=== PATIENT | male | born 1975 | race Caucasian/White ===

== ENCOUNTER → 2017-12-15 | Outpatient (CLI) | payer BC | END | disposition home or self-care (01) | LOC: KCIC 14:59 | DX: M47.897 Other spondylosis, lumbosacral region (principal); M48.07 Spinal stenosis, lumbosacral region; M12.88 Other specific arthropathies, not elsewhere classified, other specified site | CPT/HCPCS: 72110 ==

== ENCOUNTER 2019-01-09 07:07 | Emergency (ER) | payer BC ==
[~2019-01-09] VITALS: Ht 188 cm; Wt 90.7 kg
[~2019-01-09 07:07] MED LIST: CETI10TA22 PO; DIAZ5TAB PO; DOCU-109 PO; IBUP100T7 PO; LOSA1TAB25 PO; LOSA25TA54 PO; ONDA4TAB10 SL; OXYC1TAB15 PO
[2019-01-09 07:20] VITALS: BP 134/75
[2019-01-09] MEDS ORDERED: CYCLOBENZAPRINE 10 MG TABLET. PO ONE (08:00)
[2019-01-09] MEDS ORDERED: KETOROLAC 60 MG/2 ML VIAL. IM ONE (08:00)
[2019-01-09] MEDS ORDERED: HYDROcodone/APAP 5/325MG 1 TAB TABLET PO ONE (08:45)
[2019-01-09] MEDS ORDERED: predniSONE 10 MG TABLET PO ONE (08:45)
[2019-01-09] MEDS ORDERED: METH4TAB2 PO (08:59)
--- NOTE | 2019-01-09 11:28 | PHYS DOC ---
Past Medical History Past Medical History: Other Additional Past Medical Histor: CHRONIC BACK PAIN Past Surgical History: Other Additional Past Surgical Histo: right shoulder Alcohol Use: None Drug Use: None Adult General Chief Complaint Chief Complaint: BACK PAIN - NO INJURY HPI HPI Patient is a 44 year old yo male with back pain. onset on and off for the last few months . If not longer however the last couple of days ago worse last night he was working on a machine and he felt a spasm in his left lower back radiates to left buttock no bowel or bladder incontinence no numbness in the lower extremities he has had Toradol injections at urgent care that has helped before and he did take a Medrol Dosepak about a month ago and that helped a lot as well. Pain is sharp nonradiating except to the buttock Review of Systems Review of Systems Constitutional: Denies fever or chills [] Eyes: Denies change in visual acuity, redness, or eye pain [] HENT: Denies nasal congestion or sore throat [] Respiratory: Denies cough or shortness of breath [] Cardiovascular: No additional information not addressed in HPI [] Neurologic: Denies headache, focal weakness or sensory changes [] Endocrine: Denies polyuria or polydipsia [] All other systems were reviewed and found to be within normal limits, except as documented in this note. Current Medications Current Medications Current Medications Medications (Trade) Dose Ordered Sig/Nick Start Time Stop Time Status Last Admin Dose Admin Acetaminophen/ Hydrocodone Bitart (Lortab 5/325) 2 tab 1X ONCE 01/09/19 08:45 01/09/19 08:46 DC 01/09/19 08:49 2 TAB Cyclobenzaprine HCl (Flexeril) 10 mg 1X ONCE 01/09/19 08:00 01/09/19 08:01 DC 01/09/19 07:59 10 MG Ketorolac Tromethamine (Toradol Im) 30 mg 1X ONCE 01/09/19 08:00 01/09/19 08:01 DC 01/09/19 07:59 30 MG Prednisone (Prednisone) 50 mg 1X ONCE 01/09/19 08:45 01/09/19 08:46 DC 01/09/19 08:47 50 MG Allergies Allergies Allergies Coded Allergies Type Severity Reaction Last Updated Verified shellfish derived Allergy Severe 08/01/16 Yes Physical Exam Physical Exam Constitutional: Well developed, well nourished, moderate distress, non-toxic appearance. [] HENT: Normocephalic, atraumatic, bilateral external ears normal, oropharynx moist, no oral exudates, nose normal. [] Eyes: PERRLA, EOMI, conjunctiva normal, no discharge. [] Neck: Normal range of motion, no tenderness, supple, no stridor. [] Pulmonary: Normal respiratory effort no increased work of breathing no obvious chest wall trauma Abdomen: Bowel sounds normal, soft, no tenderness, no masses, no pulsatile masses. [] Skin: Warm, dry, no erythema, no rash. [] Back: there is left paraspinous and left buttock ttp. palpable spasm. after tx pt is able to walk with an antalgic gait. Extremities: No tenderness, no cyanosis, no clubbing, ROM intact, no edema. [] Neurologic: Alert and oriented X 3, normal motor function, normal sensory function, no focal deficits noted. [] Current Patient Data Vital Signs Vital Signs Date Time Temp Pulse Resp B/P (MAP) Pulse Ox O2 Delivery O2 Flow Rate FiO2 01/09/19 07:20 97.9 91 18 134/75 (94) 99 Room Air 97.9 EKG EKG [] Radiology/Procedures Radiology/Procedures [] Course & Med Decision Making Course & Med Decision Making Pertinent Labs and Imaging studies reviewed. (See chart for details) 44 yo m with back pain. longstanding hx of same pt treated with the above and was able to ambulate and felt somewhat better. rx medrol dosepak f/u pmd for pain mgmt referral, jessica need mri and jorge alberto given the more acute pain occuring recently. no signs of cauda equina clinically Dragon Disclaimer Dragon Disclaimer This electronic medical record was generated, in whole or in part, using a voice recognition dictation system. Departure Departure Impression: Primary Impression: Back pain Disposition: 01 HOME, SELF-CARE Condition: STABLE Patient Instructions: Back Pain, Adult, [id number] Scripts Methylprednisolone (MEDROL) 4 Mg Tab.ds.pk 1 PKG PO UD, #1 PKG Prov: MARGRET FRANCO MD 01/09/19 MARGRET FRANCO MD Jan 09, 2019 11:28
== END 2019-01-09 09:05 | disposition home or self-care (01) ==
LOC: ER 07:07
DX: M54.5 Low back pain (principal); G89.29 Other chronic pain; Z91.013 Allergy to seafood
CPT/HCPCS: 96372; 99284; J1885; J7512

== ENCOUNTER → 2019-06-04 | Outpatient (CLI) | payer BC ==
[~2019-06-04] MED LIST changes: +AMLO10TA8 PO; +METH4TAB2 PO
--- NOTE | 2019-06-04 09:09 | KCIC ---
LUMBAR SPINE WO CONTRAST History: Chronic back pain. Right sciatica. Arthritis. Technique: Multiplanar, multi sequential MR imaging was performed of the lumbar spine. Comparison: None Findings: Normal vertebral body height and alignment. No fracture. Heterogeneous marrow signal. Degenerative endplate edema at L5-S1. Conus terminates at the normal location. No evidence of nerve root clumping. L1-L2: Minimal posterior disc bulge. No canal or neuroforaminal narrowing. L2-L3: Minimal posterior disc bulge. Mild facet arthropathy. No canal or neuroforaminal narrowing. L3-L4: Small posterior disc bulge. Mild facet arthropathy. No canal or neuroforaminal narrowing. L4-L5: Minimal posterior disc bulge. Moderate facet arthropathy. No canal or neuroforaminal narrowing. L5-S1: Severe disc height loss. Broad-based posterior disc bulge with central annular fissure. Moderate facet arthropathy. Mild bilateral subarticular recess narrowing with slight abutment of the bilateral descending S1 nerve roots. No neuroforaminal narrowing. Impression: 1. Multilevel lumbar spondylosis most prominent L5-S1 with mild subarticular recess narrowing. 2. Moderate lower lumbar facet arthropathy. Electronically signed by: Shamar Liu DO (06/04/2019 9:06 AM) [facility]
== END | disposition home or self-care (01) ==
LOC: KCIC MRI 07:40
PROVIDERS: ATTEND Physician Assistant Medical
DX: M47.897 Other spondylosis, lumbosacral region (principal); M48.07 Spinal stenosis, lumbosacral region; M12.88 Other specific arthropathies, not elsewhere classified, other specified site
CPT/HCPCS: 72148

== ENCOUNTER → 2019-06-23 | Outpatient (CLI) | payer BC ==
[~2019-06-23] MED LIST changes: +IOHEXOL 180 MG/ML 10 ML VIAL. ONE; +methylPREDNISolone ACETATE 40 MG/ML VIAL. ONE; +methylPREDNISolone ACETATE 80 MG/ML VIAL. ONE
--- NOTE | 2019-06-23 22:37 | PAIN ---
DATE OF SERVICE: 06/23/2019 INITIAL CONSULTATION FOR PAIN CLINIC CHIEF COMPLAINT: Low back and right lower extremity pain. HISTORY OF PRESENT ILLNESS: This is a 44-year-old male who presents with history of pain, low back, right lower extremity since about 2002, worse over the past 6 months to a year, worse with activity, standing, walking, changing positions, better with sitting or lying down, but still awakens him from sleep at least 2-3 times at night. The patient reports it does not affect his bowel or bladder control, but does affect his ability to walk. Significantly problematic when he is at work, when he is standing on a ladder or climbing or changing positions, stooping or bending. The patient reports the pain is constant now, shooting in the low back and the right leg, radiating in the right lower extremity and posterior gluteus as well as the thigh, changes during the day. Again, worse with activity. The patient reports no new motor or sensory deficits, but significant fatigability of the right lower extremity, but none on the left side. The patient did have an MRI scan of the lumbar spine showing multilevel lumbar spondylosis and severe disk height loss at L5-S1 with broad-based posterior disk bulge with central annular fissure and mild bilateral subarticular recess narrowing with slight abutment of bilateral descending S1 nerve roots The patient rates the disability rating from 0-10, 10 being the worst, as a 2 with family home responsibilities and social activity and self-care, 3 with recreation, 6 with occupational activities, 5 with sexual behavior. PAST MEDICAL HISTORY: Significant for hypertension, arthritis. PREVIOUS SURGERY: Includes left rotator cuff repair in 2016. CURRENT MEDICATIONS: Include amlodipine, losartan and Zyrtec. ALLERGIES: THE PATIENT IS ALLERGIC TO SHELL FISH, but no medical allergies. FAMILY HISTORY: Significant for no major medical problems or conditions that he is aware of. SOCIAL HISTORY: The patient drinks about 5 alcoholic drinks a day, does not smoke, does not use any illegal, illicit or recreational drugs. 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 REVIEW OF SYSTEMS: The patient's review of systems is positive for those items mentioned in history of present illness. All systems reviewed and otherwise negative. It is complete, full and well documented on the patient's chart. PHYSICAL EXAMINATION: VITAL SIGNS: The patient's blood pressure is 129/82, pulse 81, respirations are 18, temperature is 98.5 degrees Fahrenheit, height is 6 feet 2 inches, weighs 193 pounds. GENERAL: The patient is awake, alert, oriented, appropriate, very pleasant demeanor. The patient is accompanied by his spouse. HEENT: Shows normocephalic, atraumatic. Extraocular movements are intact and symmetrical. Oral cavity: Mucous membranes moist and pink. Dentition is intact. NECK: Shows anterior throat supple without palpable lymphadenopathy noted. Swallow reflex symmetrical. CHEST: Shows normal on inspection. Breath sounds clear to auscultation bilaterally. HEART: Shows S1, S2 clear. No murmurs auscultated. ABDOMEN: Soft, nontender, nondistended. No palpable organomegaly is noted. No rebound or guarding demonstrated. BACK: Shows spine grossly in the midline. Normal appearing thoracic kyphosis, some minor flattening of the lumbar lordotic curvature. Lumbar paraspinous muscle shows symmetrical on inspection, with palpation shows some very mild tenderness in the low lumbar distribution bilaterally but only diffusely without radiation. The patient has good rotational motion of lumbar spine, both laterally as well as extension and flexion without significant difficulty. No tenderness over the spinous processes, sacrum or sacroiliac regions. The patient has good rotational motion without pain reported both laterally as well as extension and flexion. EXTREMITIES: The patient's lower extremities show deep tendon reflexes at 2+ patellar and 1+ tendo-calcaneus tendons. Motor exam is 5/5 with dorsiflexion, extension, quadriceps and hamstring flexion. Peripheral pulses are 1+ posterior tibia. No peripheral edema is noted. Lower extremities are warm and dry to touch, equal in color and appearance. The patient does have positive straight leg raise on the right about 45 degrees, decreased with knee flexion, left side is negative. SKIN: Shows warm and dry, good turgor. No edema. No sores, rashes or bruising throughout. The patient is able to stand, stand on his toes without significant difficulty or loss of balance, is walking with a normal-appearing gait, not using any assistive devices to ambulate. IMPRESSION: 1. This is a 44-year-old male with approximately 6 months to a year history of increasing pain, low back and right lower extremity in a radicular fashion. 2. MRI scan of lumbar spine as noted. 3. Arthritis. 4. Hypertension. PLAN: Options were discussed with the patient and the patient's spouse who accompanies him to his visit today including conservative medical management, physical therapies, interventional techniques and he has done physical therapy in the past. He is doing some stretching and strengthening exercises as well as some chiropractic treatment currently. We discussed a lumbar epidural steroid injection using description as well as anatomical models to describe the procedure. Risks were then discussed including, but not limited to bleeding, infection, possibility of epidural hematoma, subsequent neurological compromise, dural puncture, headaches, spinal cord and/or nerve damage, side effects of steroid medication and poor results regarding pain control. The patient understands and wished to proceed. The patient will return to clinic in approximately 2 weeks for followup. He was counseled as to return appointment, activity level and side effects to be aware of. DIAGNOSES: Lumbar radiculopathy with lumbar degenerative disk disease. PROCEDURE: Lumbar epidural steroid injection, translaminar approach L5-S1 level using C-arm fluoroscopic guidance under sterile prep and drape using local anesthetic. MEDICATION INJECTED: The patient received a total of 120 mg of Depo-Medrol plus 10 mL of sterile normal saline and 2 mL of contrast. CONDITION AT DISCHARGE: Stable. The patient tolerated the procedure well, had no complications. CASEY CASTELLANOS MD DR: JOYCE/gurvinder JOB#: [id number] / [id number] IE Newton MD
== END ==
LOC: PNCL 08:14
PROVIDERS: ATTEND Anesthesiology
DX: M51.16 Intervertebral disc disorders with radiculopathy, lumbar region (principal); I10 Essential (primary) hypertension; Z91.013 Allergy to seafood; Z98.890 Other specified postprocedural states; Z72.89 Other problems related to lifestyle
CPT/HCPCS: 62323; J1030; J1040; Q9965

== ENCOUNTER → 2019-07-07 | Outpatient (CLI) | payer BC ==
--- NOTE | 2019-07-07 08:35 | PAIN ---
DATE OF SERVICE: 07/07/2019 PROGRESS NOTE FOR PAIN CLINIC DIAGNOSIS: Lumbar radiculopathy with lumbar degenerative disk disease. HISTORY OF PRESENT ILLNESS: The patient is a 44-year-old male who returns for followup status post lumbar epidural steroid injection x 1. The patient reports about 50% improvement in the low back and right lower extremity pain. The patient reports still significant pain with walking, standing and has been increasing his activity with greater ease and comfort, doing walking distances, able to do work activities, household activities with much greater ease and comfort, sleeping better at night. The patient reports the pain is a 4 on a scale of 10 at all times over the past week average, worst and least and is a 4 today. The patient reports it is dull, tight, shooting. No new motor or sensory deficits. No new bowel or bladder incontinence or other complaints. PHYSICAL EXAMINATION: VITAL SIGNS: The patient's blood pressure is 128/74, pulse 80, respirations 18, temperature 98.1 degrees Fahrenheit, height 6 feet 2 inches, weight is 194 pounds. GENERAL: The patient is awake, alert, oriented, appropriate, very pleasant demeanor. HEENT: Shows normocephalic, atraumatic. Extraocular movements are intact and symmetrical. Oral cavity: Mucous membranes moist and pink. Dentition is intact. NECK: Shows anterior throat supple without palpable lymphadenopathy noted. Swallow reflex symmetrical. CHEST: Shows normal on inspection. Breath sounds are clear to auscultation bilaterally. HEART: Shows S1, S2 clear. No murmurs auscultated. ABDOMEN: Soft, nontender, nondistended. No palpable organomegaly is noted. No rebound or guarding demonstrated. BACK: Shows spine grossly in the midline. Normal appearing thoracic kyphosis and lumbar lordotic curvature. Lumbar paraspinous muscle shows symmetrical on inspection, with palpation shows some moderate tenderness diffusely bilaterally, but only diffusely without radiation. The patient has good rotational motion of lumbar spine without difficulty. EXTREMITIES: Lower extremities show deep tendon reflexes at 2+ in the patellar, 1+ tendo-calcaneus tendons. Motor exam is strong with 5/5 dorsiflexion, extension, quadriceps and hamstring flexion and symmetrical. Peripheral pulses are 1+ posterior tibial. No peripheral edema is noted. Options were discussed with the patient. The patient's old chart was reviewed as his current medication regimen updated. Current review of systems updated today as well. We will proceed with a second in a series of lumbar epidural steroid injection today with fluoroscopic guidance. Risks were again discussed including, but not limited to bleeding, infection, possibility of epidural hematoma, subsequent neurologic compromise, dural puncture, headaches, spinal cord and/or nerve damage, side effects of steroid medication and poor results regarding pain control. The patient understands and wished to proceed. The patient will return to clinic in approximately 2 weeks for followup. He was counseled on return appointment, activity level and side effects to be aware of. DIAGNOSIS: Lumbar radiculopathy with lumbar degenerative disk disease. PROCEDURE: Lumbar epidural steroid injection, translaminar approach at the L5-S1 level using C-arm fluoroscopic guidance under sterile prep and drape using local anesthetic. MEDICATION INJECTED: The patient received a total of 120 mg Depo-Medrol plus 10 mL of preservative-free normal saline and 2 mL of contrast. CONDITION AT DISCHARGE: Stable. The patient tolerated the procedure well, had no complications. CASEY CASTELLANOS MD DR: JOYCE/gurvinder JOB#: [id number] / [id number]
== END ==
LOC: PNCL 07:37
PROVIDERS: ATTEND Anesthesiology
DX: M51.16 Intervertebral disc disorders with radiculopathy, lumbar region (principal); M54.5 Low back pain
CPT/HCPCS: 62323; J1030; J1040; Q9965

== ENCOUNTER → 2019-09-22 | Outpatient (CLI) | payer BC ==
--- NOTE | 2019-09-22 12:37 | PAIN ---
DATE OF SERVICE: 09/22/2019 PROGRESS NOTE FOR PAIN CLINIC DIAGNOSES: Lumbar radiculopathy with lumbar degenerative disk disease. HISTORY OF PRESENT ILLNESS: The patient is a 44-year-old male who returns for followup status post lumbar epidural steroid injection x 2. The patient reports about 80% improvement after the last injection that lasted longer than the first one, he has been increasing his distance walking, doing work activities with greater ease and comfort, home household activities, traveling with greater ease as well. The patient reports still in the low back and right lower extremity radiating to posterior gluteus, posterior thigh, posterior calf, but much improved. The patient reports he has been sleeping better at night, awakens him occasionally, but not every night. The patient reports it is an 8 on a scale of 10 at its worst over the past week, 5 on average and 3 at its least and is a 5 today. The patient reports it is sharp, tight, shooting in the low back and the right hip and leg, but no motor or sensory deficits. No bowel or bladder incontinence or other complaints. PHYSICAL EXAMINATION: VITAL SIGNS: The patient's blood pressure 129/85, pulse 84, respirations 16, temperature 98.4 degrees Fahrenheit, height is 6 feet 2 inches and weight is 195 pounds. GENERAL: The patient is awake, alert, oriented, appropriate, very pleasant demeanor. HEENT: Shows normocephalic, atraumatic. Extraocular movements are intact and symmetrical. Oral cavity: Mucous membranes moist and pink. Dentition is intact. NECK: Shows anterior throat supple without palpable lymphadenopathy noted. Swallow reflex symmetrical. CHEST: Shows normal on inspection. Breath sounds are clear bilaterally. HEART: Shows S1, S2 clear. ABDOMEN: Soft, nontender, nondistended. BACK: Shows spine grossly in the midline. Normal appearing thoracic kyphosis and lumbar lordotic curvature. Lumbar paraspinous muscle shows symmetrical on inspection, on palpation shows some moderate tenderness diffusely bilaterally going diffusely without significant radiation. EXTREMITIES: The patient's lower extremities show deep tendon reflexes 2+ in the patellar, 1+ tendo-calcaneus tendons. Motor exam is strong with 5/5 dorsiflexion, extension, quadriceps and hamstring flexion. Peripheral pulses are 1+ posterior tibia. No peripheral edema is noted bilaterally. Options were discussed with the patient. The patient's old chart was reviewed as his current medication regimen updated. Current review of systems updated today as well. We will proceed with a third in the series of lumbar epidural steroid injection today with fluoroscopic guidance. Risks were again discussed including, but not limited to bleeding, infection, possibility of epidural hematoma, subsequent neurological compromise, dural puncture, headaches, spinal cord and/or nerve damage, side effects of steroid medication and poor results regarding pain control. The patient understands and wished to proceed. The patient will return to clinic in approximately 2 weeks for followup. She was counseled on return appointment, activity level and side effects to be aware of. DIAGNOSES: Lumbar radiculopathy with lumbar degenerative disk disease. PROCEDURE: Lumbar epidural steroid injection, translaminar approach L5-S1 level using C-arm fluoroscopic guidance under sterile prep and drape using local anesthetic. MEDICATION INJECTED: A total of 120 mg Depo-Medrol plus 10 mL of preservative-free normal saline and 2 mL of contrast. CONDITION AT DISCHARGE: Stable. The patient tolerated the procedure well, had no complications. CASEY CASTELLANOS MD DR: JOYCE/gurvinder JOB#: [id number] / [id number]
== END | disposition home or self-care (01) ==
LOC: PNCL 09:28
PROVIDERS: ATTEND Anesthesiology
DX: M51.16 Intervertebral disc disorders with radiculopathy, lumbar region (principal); Z98.890 Other specified postprocedural states; Z91.013 Allergy to seafood
CPT/HCPCS: 62323; J1030; J1040; Q9965

== ENCOUNTER → 2019-12-21 | Outpatient (CLI) | payer BC ==
--- NOTE | 2019-12-20 15:48 | EKG ---
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
[2019-12-20 16:14] LABS: BASO % 1 % (0-3); EOS # 0.1 x10^3/uL (0.0-0.7); EOS % 1 % (0-3); HEMATOCRIT 44.1 % (39.0-53.0); HEMOGLOBIN 15.2 g/dL (13.0-17.5); LYMPH # 1.2 x10^3/uL (1.0-4.8); LYMPH % 23 % (24-48); MEAN CORPUSCULAR HEMOGLOBIN 31 pg (25-35); MEAN CORPUSCULAR HGB CONC 35 g/dL (31-37); MEAN CORPUSCULAR VOLUME 90 fL (79-100); MONO # 0.5 x10^3/uL (0.0-1.1); MONO % 10 % (0-9); NEUT # 3.5 x10^3/uL (1.8-7.7); NEUT % 66 % (31-73); PLATELET COUNT 144 x10^3/uL (140-400); RED BLOOD COUNT 4.91 x10^6/uL (4.30-5.70); RED CELL DISTRIBUTION WIDTH 13.5 % (11.5-14.5); WHITE BLOOD COUNT 5.4 x10^3/uL (4.0-11.0)
[2019-12-20 16:59] LABS: ALBUMIN 3.4 g/dL (3.4-5.0); ALBUMIN/GLOBULIN RATIO 0.8 (1.0-1.7); CREATININE 0.9 mg/dL (0.7-1.3); GFR 90.8; POTASSIUM 4.1 mmol/L (3.5-5.1); TOTAL PROTEIN 7.8 g/dL (6.4-8.2)
[~2019-12-21] MED LIST changes: +CEPH-264 PO; -CETI10TA22 PO; +CETI10TA24 PO; +HYDR-3164 PO; +IBUP-1007 PO; -IOHEXOL 180 MG/ML 10 ML VIAL. ONE; +METH-38 PO; +UNABLE MC; -methylPREDNISolone ACETATE 40 MG/ML VIAL. ONE; -methylPREDNISolone ACETATE 80 MG/ML VIAL. ONE
== END | disposition home or self-care (01) ==
LOC: SURGPAT 10:39
PROVIDERS: ATTEND Neurological Surgery
DX: Z01.818 Encounter for other preprocedural examination (principal); I10 Essential (primary) hypertension; M48.00 Spinal stenosis, site unspecified
CPT/HCPCS: 36415; 80053; 85025; 87641; 93005

== ENCOUNTER 2019-12-24 08:34 | Day surgery (SDC) | payer BC ==
--- NOTE | 2019-12-23 14:09 | HP ---
ADMIT DATE: 12/24/2019 PREOPERATIVE HISTORY AND PHYSICAL DATE OF SURGERY: 12/24/2019. HISTORY OF PRESENT ILLNESS: The patient is a pleasant 44-year-old who has difficulty with low back pain and pain which radiates into his right buttock, posterior thigh and occasionally into his posterior leg. The problem has been present for many years. It has been gradually worsening. Despite conservative measures, he had physical therapy about 2 years ago that did help him for a short-term. He had epidural steroid injections recently, which he said helped him for about 1 week at most. Sitting or rising from a seated position increases his pain. Heat helps. PAST MEDICAL HISTORY: Hypertension. PAST SURGICAL HISTORY: Right rotator cuff repair. FAMILY HISTORY: Noncontributory. SOCIAL HISTORY: He is a nonsmoker. 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 . Denies substance abuse. Denies tobacco use. Drinks soda. ALLERGIES: SHRIMP AND SHELLFISH. CURRENT MEDICATIONS: None. REVIEW OF SYSTEMS: A 12-point review of systems was obtained and is noncontributory except for that mentioned above. PHYSICAL EXAMINATION: NEUROSURGERY EXAMINATION: GENERAL APPEARANCE: Alert, pleasant, no acute distress. HEAD: Normocephalic and atraumatic. SKIN: Warm and dry. MUSCULOSKELETAL: Lumbar paraspinal muscle bulk is normal, restricted range of motion of lumbar spine. [id number] tenderness of lower lumbar spine with palpation, normal range of motion of the lower extremities bilaterally. EXTREMITIES: No clubbing, cyanosis or edema. NEUROLOGIC: Alert and oriented x 3, normal recent and remote memory. Strength 5/5 in bilateral lower extremities. Sensory was intact to light touch in bilateral lower extremities. Reflexes were present and symmetric in the lower extremities bilaterally. Positive straight leg raising on the right, negative straight leg raising on the left, normal gait. IMAGING REVIEWED: I reviewed a lumbar MRI scan. On that study, there are degenerative changes primarily at L5-S1. At that level, there is lateral recess narrowing with abutment of the S1 nerve root. ASSESSMENT/PLAN The pattern of his pain does suggest an S1 radiculopathy. He does have lateral recess narrowing at L5-S1. He has failed extensive amount of conservative therapy. At this point, my recommendation is that he considers a decompression L5-S1 on the right. I have explained that this may not help him, I am willing to operate and decompress the S1 nerve root to see if this would offer him some relief. I outlined the risks including the nerve root injury in detail. I outlined the expected postoperative course. He understands. He would like to go ahead. We will make the arrangements. MOSHE SCHAFER MD DR: RADHA/gurvinder JOB#: [id number] / [id number] MARIA ELENA
[~2019-12-24 08:34] MED LIST changes: +BACITRACIN 50,000 UNIT in IV NORMAL SALINE 1000ML BAG 1,000 ML IRR ONE; +BUPIVACAINE-EPI 0.5%-1:200000 MPF 30 ML VIAL. ONE; +GELATIN SPONGE SIZE 100. ONE; +HYDROmorphone 2 MG/ML VIAL IV PRN; +IV RINGERS,LACTATED 1000ML 1,000 ML IV SCH; +KETOROLAC 60 MG/2 ML VIAL. ONE; -METH-38 PO; +MORPHINE SULFATE 2 MG/ML VIAL. IV PRN; +ONDANSETRON PF 4 MG/2 ML VIAL. IV PRN; +PROCHLORPERAZINE 10 MG/2 ML VIAL. IV PRN; +THROMBIN TOPICAL 20,000 UNIT SPRAY.SYRN KIT TP ONE; +fentaNYL PF VIAL 100 MCG/2 ML VIAL IV PRN
[2019-12-24] MEDS ORDERED: REMIFENTANIL 2 MG VIAL. IV ONE (09:43)
[2019-12-24] MEDS ORDERED: DESFLURANE > 120 MINUTES IH ONE ×2 (09:43→12:42)
[2019-12-24] MEDS ORDERED: ROCURONIUM 50 MG/5 ML VIAL. ONE (09:44)
[2019-12-24] MEDS ORDERED: PROPOFOL 20 ML IV ONE (09:45)
[2019-12-24] MEDS ORDERED: LIDOCAINE 2% PF 5 ML VIAL. ONE (09:46)
[2019-12-24] MEDS ORDERED: DEXAMETHASONE SOD PHOS 20 MG/5 ML VIAL. ONE (09:46)
[2019-12-24] MEDS ORDERED: ONDANSETRON PF 4 MG/2 ML VIAL. ONE (09:46)
[2019-12-24] MEDS ORDERED: PROPOFOL 50 ML IV ONE ×2 (09:46→12:06)
[2019-12-24] MEDS ORDERED: FAMOTIDINE 20 MG/2 ML VIAL ONE (10:46)
[2019-12-24] MEDS ORDERED: 0.9 % SODIUM CHLORIDE 20 ML VIAL. IJ ONE (10:47)
[2019-12-24] MEDS ORDERED: fentaNYL PF VIAL 100 MCG/2 ML VIAL ONE ×2 (10:51→13:04)
[2019-12-24] MEDS ORDERED: MIDAZOLAM HCL/PF 2 MG/2 ML VIAL. ONE (10:51)
[2019-12-24] MEDS ORDERED: PHENYLEPHRINE in 0.9% NACL PF 1 MG/10 ML SYRINGE. IV ONE (11:12)
[2019-12-24] MEDS ORDERED: ePHEDrine PF IN SALINE 50 MG/10 ML SYRINGE. IV ONE (11:19)
[2019-12-24] MEDS ORDERED: GLYCOPYRROLATE 1 MG/5 ML VIAL. ONE (12:42)
[2019-12-24] MEDS ORDERED: NEOSTIGMINE METHYLSULFATE 5 MG/5 ML SYRINGE. ONE (12:43)
[2019-12-24] MEDS ORDERED: HYDR-3164 PO (13:01)
[2019-12-24] MEDS ORDERED: DOCU-109 PO (13:01)
[2019-12-24] MEDS ORDERED: METH-38 PO (13:01)
--- NOTE | 2019-12-24 13:03 | DISCH ---
DISCHARGE INSTRUCTIONS Condition on Discharge Condition on Discharge: Stable Activity After Discharge Activity Instructions for Disc: Activity as tolerated, Avoid exertion, Other ROM activity Bathing Instructions: Shower-keep dressing dry Lifting Instructions after Dis: No heavy lifting, No pulling or pushing, Do not lift >10 pounds Exercise Instruction after Dis: Exercise per therapy Driving Instructions after Dis: Do not drive today Weight Bearing Status after Di: Non weight bearing Diet after Discharge Diet after Discharge: Regular Additional Diet Restrictions: resume home diet Wound Incision Care Wound/Incision Care: Ice to area for comfort Other wound/incision instructi: may remove dressing in 48 hours if dry then may shower, no soaking Contacting the [facility]Ansley after DC Call your doctor for: Concerns you may have Follow-Up Follow up with: Dr. Schafer's nurse in 2 weeks for wound check [phone] Treatment/Equipment after DC Adaptive Equipment Issued: None MOSHE SCHAFER MD Dec 24, 2019 13:03
[2019-12-24] MEDS ORDERED: PROCHLORPERAZINE 10 MG/2 ML VIAL. ONE (13:04)
[2019-12-24] MEDS ORDERED: HYDROcodone/APAP 5/325MG 1 TAB TABLET ONE (13:52)
[2019-12-24] MEDS ORDERED: HYDROcodone/APAP 5/325MG 1 TAB TABLET PO ONE (14:00)
[2019-12-24 14:03] VITALS: BP 128/65
--- NOTE | 2019-12-29 17:07 | PATHOLOGY ---
[facility] Accession Number: [id number] . 01 Material submitted: . vertebral column - LUMBAR DECOMPRESSION . 01 Clinical history: . Lumbar stenosis with neurogenic claudication . 02 Diagnosis: Segments of fibrocartilaginous, fibroadipose, and skeletal muscle tissue and bone, lumbar decompression: - Degenerative changes of fibrocartilaginous tissue. . (JPM:ivelisse; 12/29/2019) QMS 12/29/2019 1329 Local . 02 Comment: There is no evidence of an acute inflammatory process or maligancy. . 02 Electronically signed: . Jaron Tello MD, Pathologist NPI- [id number] . 01 Gross description: . The specimen is received in formalin, labeled "Donnie Newton IV, lumbar decompression". Received are multiple segments of pale seals fibrous, gritty tissue admixed with fragments of bone measuring 3.8 x 3.2 x 0.6 cm in aggregate dimensions. The specimen is submitted representatively in cassette A1, following decalcification. (CAA; 12/28/2019) QAC/QAC 12/29/2019 1328 Local . 02 Pathologist provided ICD-10: M51.36 . 02 CPT . 547380, [id number] Specimen Comment: A courtesy copy of this report has been sent to [phone], [phone] Specimen Comment: [id number] Specimen Comment: Report sent to / DR MEEKS Performed at: 01 [facility] [address], [place] [id number] MD Jack Porras MD Phone: [phone] Performed at: 02 [facility] [address], [place] [id number] MD Jaron Tello MD Phone: [phone]
--- NOTE | 2019-12-31 16:07 | OP ---
DATE OF SURGERY: 12/24/2019 PREOPERATIVE DIAGNOSIS: Lateral recess stenosis L5-S1 with right lumbar radiculopathy. POSTOPERATIVE DIAGNOSIS: Lateral recess stenosis L5-S1 with right lumbar radiculopathy. OPERATION PERFORMED: Hemilaminotomy and microdecompression L5-S1 right. The operation was done with EMG monitoring, SSEP monitoring, fluoroscopy, microscopic dissection. SURGEON: Nicholas Schafer MD DESIGN STUDIO CONSULTANT: TRENT Walters assisted with the surgery. She assisted with the exposure, the microdecompression as well as the closure. OPERATIVE INDICATIONS: The patient is a pleasant 44-year-old who developed intractable back and right leg pain for a number of years, which has been slowly worsening. On imaging studies, he was found to have lateral recess stenosis with compression of the right nerve root at L5-S1 and I recommended microdecompressive surgery after he failed to improve with both physical therapy and epidural steroid injections. He understood the surgery, the risks, the technique and expected postoperative course and wished to go ahead. DESCRIPTION OF PROCEDURE: Following general endotracheal anesthesia, the patient was positioned prone on the Juan frame. His lumbar region prepped and draped in the standard fashion. DANELLE hose and AV impulse boots were applied for DVT prophylaxis. A microscope was draped. Fluoroscopy was draped and brought into field. Monitoring was established. Ancef 2 grams were given less than 1 hour prior to initiation of surgery. Using fluoroscopic guidance, a midline posterior incision was made over the L5-S1 interspace, dissected down through skin and subcutaneous tissue, reflected the paraspinal muscles, placed a Alger microdisk retractor. I brought in the microscope and the remainder of surgery was done with the microscope using microscopic technique. I burred down a generous hemilaminotomy. I then began to peel the ligamentum flavum away from superior to inferior. There was considerable scarring of the ligamentum as I approached the L5-S1 interspace on the right hand side. I delicately worked through this, trimming first medially and then peeling from medial to lateral and I was able to work and remove the ligament and free up the nerve root, which was densely scarred beneath the thickened bone and ligament. I did work farther inferiorly performing a partial foraminotomy and fully decompressed the region and assured myself that the root was quite free. The disc was firm and no discectomy was warranted. I irrigated with antibiotic solution. I felt that I had an excellent decompression. I removed the retractor, obtained hemostasis in the muscle and I closed the wound in layers with absorbable suture. The skin was closed with 4-0 subcuticular stitch. Again, I felt the surgery went very well. NICHOLAS SCHAFER MD DR: RADHA/gurvinder JOB#: [id number] / [id number] MARIA ELENA
== END 2019-12-24 15:17 | disposition home or self-care (01) ==
LOC: SURG 08:34
PROVIDERS: ATTEND Neurological Surgery
DX: M48.061 Spinal stenosis, lumbar region without neurogenic claudication (principal); M51.16 Intervertebral disc disorders with radiculopathy, lumbar region; I10 Essential (primary) hypertension; Z88.8 Allergy status to other drugs, medicaments and biological substances; Z91.013 Allergy to seafood; Z72.89 Other problems related to lifestyle
CPT/HCPCS: 63047; 88304; 88311; 97116; 97530; A7015; J0171; J0780; J1100; J1885; J2001; J2250; J2370; J2405; J2704; J2710; J3010; J3490; J7030; J7120; 76000

== ENCOUNTER 2020-10-23 13:24 | Emergency (ER) | payer BC ==
[~2020-10-23] VITALS: Ht 188 cm; Wt 90.0 kg
[~2020-10-23 13:24] MED LIST changes: +AMLO-187 PO; -AMLO10TA8 PO; -BACITRACIN 50,000 UNIT in IV NORMAL SALINE 1000ML BAG 1,000 ML IRR ONE; -BUPIVACAINE-EPI 0.5%-1:200000 MPF 30 ML VIAL. ONE; -CETI10TA24 PO; +CETI10TA74 PO; -GELATIN SPONGE SIZE 100. ONE; -HYDROmorphone 2 MG/ML VIAL IV PRN; -IV RINGERS,LACTATED 1000ML 1,000 ML IV SCH; -KETOROLAC 60 MG/2 ML VIAL. ONE; +METH-38 PO; -MORPHINE SULFATE 2 MG/ML VIAL. IV PRN; -ONDANSETRON PF 4 MG/2 ML VIAL. IV PRN; -PROCHLORPERAZINE 10 MG/2 ML VIAL. IV PRN; -THROMBIN TOPICAL 20,000 UNIT SPRAY.SYRN KIT TP ONE; -fentaNYL PF VIAL 100 MCG/2 ML VIAL IV PRN
[2020-10-23 13:57] LABS: BASO % 1 % (0-3); EOS # 0.1 x10^3/uL (0.0-0.7); EOS % 2 % (0-3); HEMOGLOBIN 15.8 g/dL (13.0-17.5); LYMPH # 1.3 x10^3/uL (1.0-4.8); LYMPH % 30 % (24-48); MEAN CORPUSCULAR HEMOGLOBIN 32 pg (25-35); MEAN CORPUSCULAR HGB CONC 35 g/dL (31-37); MEAN CORPUSCULAR VOLUME 90 fL (79-100); MONO # 0.4 x10^3/uL (0.0-1.1); MONO % 9 % (0-9); NEUT # 2.4 x10^3/uL (1.8-7.7); NEUT % 58 % (31-73); PLATELET COUNT 160 x10^3/uL (140-400); RED BLOOD COUNT 4.98 x10^6/uL (4.30-5.70); WHITE BLOOD COUNT 4.2 x10^3/uL (4.0-11.0)
--- NOTE | 2020-10-23 14:02 | RAD ---
EXAM: CHEST 1 VIEW History: Chest pain COMPARISON: None available. TECHNIQUE: Single portable radiograph of the chest FINDINGS: The cardiac silhouette is unremarkable. Mild bibasilar lung airspace opacities likely infi ltrates. The costophrenic sulci are clear and well demarcated. IMPRESSION: Mild bibasilar lung airspace opacities likely atelectasis or infiltrates. Electronically signed by: Marquis Hahn MD (10/23/2020 2:00 PM) [id number]
[2020-10-23 14:04] LABS: CALCIUM 9.7 mg/dL (8.5-10.1); CREATININE 0.8 mg/dL (0.7-1.3); GFR 103.6; POTASSIUM 3.8 mmol/L (3.5-5.1)
[2020-10-23 14:11] LABS: ALBUMIN 4.3 g/dL (3.4-5.0); ALBUMIN/GLOBULIN RATIO 1.1 (1.0-1.7); MAGNESIUM 1.9 mg/dL (1.8-2.4); TOTAL PROTEIN 8.2 g/dL (6.4-8.2)
--- NOTE | 2020-10-23 14:15 | PHYS DOC ---
Past Medical History Past Medical History: Other Additional Past Medical Histor: CHRONIC BACK PAIN (LUDA PATRICIO Angie MAGANA) Past Surgical History: Other Additional Past Surgical Histo: right shoulder (LUDA PATRICIO DO) Smoking Status: Never Smoker Alcohol Use: None Drug Use: None (LUDA PATRICIO Angie MAGANA) General Adult EDM: Chief Complaint: CHEST PAIN HPI: HPI: 45-year-old male past medical history significant for hypertension and former chewing tobacco dependence (8 yrs ago, 10 yr hx), presents the ED with complaints of midsternal chest pressure, nonradiating that started around 12:30 PM while driving, lasted for approximately 1 hour and a half. States he went to eat something and controlled area checker stated she didn't think he looked as if he was feeling well. Patient has a known history of heartburn and states he thought it may have been this, but it was much more intense, "it scared the crap out of me." States pain has fully resolved since then. Denies any history of cocaine or methamphetamine abuse. Drinks approximately 6 beers almost every day. 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 Reports he tested negative for Covid 2 months ago-no known Covid exposure in household members. No family history of ACS, CVA, DVT or PE, aortic disease (dissections/aneurysms), connective tissue disorders, cardiac arrhythmias or sudden under the age of 50 (states "even hypertension doesn't run in my family"). Currently is asymptomatic. Primary care physician is Dr. Amie Meeks. No prior history of similar symptoms. No associated fever, chills, diaphoresis, nausea, vomiting, back pain, neurologic deficits or near syncope. PSH: Right rotator cuff surgery and back surgery. (LUDA PATRICIO Angie MAGANA) Review of Systems: Review of Systems: Constitutional: Denies fever or chills. [] Eyes: Denies change in visual acuity. [] HENT: Denies nasal congestion or sore throat. [] Respiratory: Denies cough or shortness of breath or hemoptysis Cardiovascular: Denies edema or syncope GI: Denies abdominal pain, nausea, vomiting, bloody stools or diarrhea. [] : Denies dysuria or hematuria Musculoskeletal: Denies back pain or joint pain or leg swelling Integument: Denies rash or crepitus Neurologic: Denies headache, neck stiffness, focal weakness or sensory changes. [] Endocrine: Denies polyuria or polydipsia. [] Lymphatic: Denies swollen glands. [] Psychiatric: Denies depression or anxiety. [] ([facility]) Heart Score: HEART Score for Chest Pain: HEART Score for Chest Pain Response (Comments) Value History Slighlty/Non-Suspicious 0 ECG Nonspecific Repolarizatio 1 Age >45 - < 65 1 Risk Factors 1 or 2 Risk Factors 1 Troponin < Normal Limit 0 Total 3 Risk Factors: Risk Factors: DM, Current or recent (<one month) smoker, HTN, HLP, family history of CAD, obesity. Risk Scores: Score 0 - 3: 2.5% MACE over next 6 weeks - Discharge Home Score 4 - 6: 20.3% MACE over next 6 weeks - Admit for Clinical Observation Score 7 - 10: 72.7% MACE over next 6 weeks - Early Invasive Strategies (LUDA PATRICIO DO) Allergies: Allergies: Allergies Coded Allergies Type Severity Reaction Last Updated Verified shellfish derived Allergy Severe throat swelling 12/24/19 Yes (LUDA PATRICIO DO) Physical Exam: PE: Constitutional: Well developed, well nourished, no acute distress, non-toxic appearance, hypertensive HENT: Normocephalic, atraumatic, Eyes: EOMI, conjunctiva normal, no discharge. Neck: Normal range of motion, supple, Cardiovascular: S1/2 present, regular rhythm Lungs & Thorax: Speaking in full sentences, bilateral equal chest rise, no tachy pnea or increased work of breathing Abdomen: soft, no tenderness, Skin: Warm, dry, no erythema, no rash. [] Back: No tenderness, no CVA tenderness. [] Extremities: No tenderness, no cyanosis, no LE edema Neurologic: Alert and oriented X 3, normal motor function, normal sensory function, no focal deficits noted. [] Psychologic: Affect normal, judgement normal, mood normal. [] (PRABHALUDA DO) Current Patient Data: Labs: Laboratory Tests Test 10/23/20 13:45 White Blood Count 4.2 x10^3/uL (4.0-11.0) Red Blood Count 4.98 x10^6/uL (4.30-5.70) Hemoglobin 15.8 g/dL (13.0-17.5) Hematocrit 45.0 % (39.0-53.0) Mean Corpuscular Volume 90 fL (79-100) Mean Corpuscular Hemoglobin 32 pg (25-35) Mean Corpuscular Hemoglobin Concent 35 g/dL (31-37) Red Cell Distribution Width 13.0 % (11.5-14.5) Platelet Count 160 x10^3/uL (140-400) Neutrophils (%) (Auto) 58 % (31-73) Lymphocytes (%) (Auto) 30 % (24-48) Monocytes (%) (Auto) 9 % (0-9) Eosinophils (%) (Auto) 2 % (0-3) Basophils (%) (Auto) 1 % (0-3) Neutrophils # (Auto) 2.4 x10^3/uL (1.8-7.7) Lymphocytes # (Auto) 1.3 x10^3/uL (1.0-4.8) Monocytes # (Auto) 0.4 x10^3/uL (0.0-1.1) Eosinophils # (Auto) 0.1 x10^3/uL (0.0-0.7) Basophils # (Auto) 0.0 x10^3/uL (0.0-0.2) Sodium Level 133 mmol/L (136-145) L Potassium Level 3.8 mmol/L (3.5-5.1) Chloride Level 95 mmol/L (98-107) L Carbon Dioxide Level 28 mmol/L (21-32) Anion Gap 10 (6-14) Blood Urea Nitrogen 10 mg/dL (8-26) Creatinine 0.8 mg/dL (0.7-1.3) Estimated GFR (Cockcroft-Gault) 103.6 BUN/Creatinine Ratio 13 (6-20) Glucose Level 93 mg/dL (70-99) Calcium Level 9.7 mg/dL (8.5-10.1) Magnesium Level Pending Total Bilirubin Pending Aspartate Amino Transferase (AST) Pending Alanine Aminotransferase (ALT) Pending Alkaline Phosphatase Pending Total Protein Pending Albumin Pending Albumin/Globulin Ratio Pending Lipase Pending Laboratory Tests 10/23/20 13:45 Laboratory Tests 10/23/20 13:45 ([facility] DO) EKG: EKG: Sinus rhythm at 72 bpm, no axis deviation, normal intervals, T wave inversion lead III, no ST elevations or ST depressions, (LUDA PATRICIO DO) Radiology/Procedures: Radiology/Procedures: []IMAGING REPORT Signed PATIENT: ABAD TERAN: [id number] : 1975 LOCATION: ER AGE: 45 SEX: M EXAM STATUS: REG ER ORD. PHYSICIAN: LUDA PATRICIO DO REASON: cp PROCEDURE: PORTABLE CHEST 1V EXAM: CHEST 1 VIEW History: Chest pain COMPARISON: None available. TECHNIQUE: Single portable radiograph of the chest FINDINGS: The cardiac silhouette is unremarkable. Mild bibasilar lung airspace opacities likely infiltrates. The costophrenic sulci are clear and well demarcated. IMPRESSION: Mild bibasilar lung airspace opacities likely atelectasis or infiltrates. Electronically signed by: Marquis Hahn MD (10/23/2020 2:00 PM) [id number] DICTATED and SIGNED BY: MARQUIS HAHN MD DATE: 10/23/20 [id number] 0 Impression: 0 criteria No need for further workup, as <2% chance of PE. If no criteria are positive and clinicians pre-test probability is <15%, PERC Rule criteria are satisfied. 0 points Low risk group for DVT. Unlikely according to [facility] DVT studies. (LUDA PATRICIO DO) Course & Med Decision Making: Course & Med Decision Making Pertinent Labs and Imaging studies reviewed. (See chart for details) Concern for atypical chest pain in the setting of heart score of 3 and uncontrolled hypertension, symptomatic hypertension on differential. Patient has not taken his blood pressure medications which usually takes in the afternoon. Symptoms started at 1230. Will need a troponin at 632 officially medically clear. Dimer within normal limits. Home medications given. Discussed differential of atypical chest pain, angina or symptomatic hypertension. Patient is adamant that he does not wish to be admitted to the hospital. Due to shift change patient was signed out to oncoming physician Dr. Cintron for further evaluation and disposition. (LUDA PATRICIO DO) Course & Med Decision Making Patient is a 45-year-old male who presented with chest pain. I assumed care from the prior provider. Troponins have been negative. Patient would like to go home. Patient's test results and vitals while in the ED were fully reviewed and discussed with the patient. Patient is stable and at this time does not need admission to the hospital. We have discussed strict return precautions and the importance of following up with their Primary Care Physician. Patient stated understanding and was given an opportunity to ask any questions. Patient is in agreement with plan. (SHARA CINTRON MD) Dragon Disclaimer: Dragon Disclaimer: This electronic medical record was generated, in whole or in part, using a voice recognition dictation system. (LUDA PATRICIO DO) Departure Departure Impression: Primary Impression: Chest pain Disposition: 01 DC HOME SELF CARE/HOMELESS Condition: STABLE Referrals: AMIE MEEKS MD (PCP) Patient Instructions: Chest Pain (Nonspecific) LUDA PATRICIO DO Oct 23, 2020 14:15 SHARA CINTRON MD Oct 23, 2020 19:17
[2020-10-23 15:04] LABS: BENZODIAZEPINES NEG (NEG); COCAINE NEG (NEG)
[2020-10-23 15:21] LABS: BARBITURATES NEG (NEG); CANNABINOIDS NEG (NEG); METHADONE NEG (NEG); OPIATES NEG (NEG); PHENCYCLIDINE NEG (NEG)
[2020-10-23 15:25] LABS: AMPHETAMINE/METHAMPHETAMINE NEG (NEG)
[2020-10-23] MEDS ORDERED: LOSARTAN POTASSIUM 25 MG TABLET. PO SCH (18:05)
[2020-10-23] MEDS ORDERED: amLODIPine BESYLATE 5 MG TABLET PO ONE (18:15)
[2020-10-23 19:15] VITALS: BP 159/98
[2020-10-23] MEDS ORDERED: ACETAMINOPHEN 500 MG TABLET PO ONE (19:30)
--- NOTE | 2020-10-24 22:53 | EKG ---
[facility] [address] [place] [address] Test Date: 2020-10-23 Test Time: 13:33:27 Pat Name: ABAD TERAN Department: Room: Gender: M [employer]: : 1975 Requested By: LUDA PATRICIO Order Number: [id number] Reading MD: Measurements Intervals Mcdonald Rate: 72 P: 43 LA: 160 QRS: 21 QRSD: 76 T: 17 QT: 354 QTc: 389 Interpretive Statements SINUS RHYTHM QRS(T) CONTOUR ABNORMALITY CONSISTENT WITH ANTEROSEPTAL INFARCT AGE UNDETERMINED ABNORMAL ECG RI6.01 No previous ECG available for comparison
== END 2020-10-23 19:46 | disposition home or self-care (01) ==
LOC: ER 13:24
DX: R07.89 Other chest pain (principal); G89.29 Other chronic pain; I10 Essential (primary) hypertension; Z98.890 Other specified postprocedural states
CPT/HCPCS: 36415; 71045; 80053; 80307; 83690; 83735; 83880; 84484; 85025; 85379; 93005; 99285

== ENCOUNTER → 2020-11-24 | Outpatient (CLI) | payer BC ==
--- NOTE | 2020-11-24 15:21 | RAD ---
MR#: [id number] Date of Study: 11/24/2020 Ordering Physician: PERCY JOY, Referring Physician: SUSANA ZIEGLER Tech: GILBERT Choi, ARRT (R) (N) APPROVED REPORT Test Type: Exercise Stress Nurse/Tech: Susana Rowley R.N. Test Indications: chest pain Cardiac History: htn, Medications: see ehr Medical History: see ehr Resting ECG: sr Resting Heart Rate: 79 bpm Resting Blood Pressure: 141/84mmHg Pretest Chest Pain: No chest pain Nurse/Tech Notes lungs cta, heart rate regular, good radail pulse Consent: The procedure was explained to the patient in lay terms. Informed consent was witnessed. Omer eout was entered into [employer]. History and Stress Test performed by RT Emy (R) (N) Stress Symptoms No chest pain or symptoms. POST EXERCISE Reason for Termination: Reached target heart rate Target HR: Yes Max HR: 161 bpm 93% of Maximum Predicted HR: 173 bpm Exercise duration: 9:20 min:sec, Stage Exercise capacity: 13.4METs Max Blood Pressure: 180/90mmHg Blood Pressure response to exercise: Normal blood pressure response during stress. Heart Rate response to exercise: normal Chest Pain: No. Arrhythmia: No. INTERPRETATION Stress EKG Conclusion: The resting EKG shows a sinus rhythm with slight nonspecific ST segment change s. The stress EKG showed slight nonspecific ST segment changes that are not diagnostic of ischemia. No EKG evidence of stress-induced ischemia. Imaging Protocol IMAGE PROTOCOL: Rest Tc-99m/stress Tc-99m 1 day Rest: Stress: Viability: Radiopharm.Tc99m [id number] Sestamibi Dose10.3mCi 31mCi Img Date 11/24/2020 11/24/2020 Inj-Img [id number]. 60min. Rest Admin Site:IV - Left AntecubitalAdministrator:RT Arthur (R)(N) Stress Admin Site: IV - Left AntecubitalAdministrator: RT Emy (R)(N) STRESS DATA End Diast. Vol.105.0mlAv. Heart Rate94.0bpm End Syst. Vol.26.0mlCO Index BSA0.0L/min Myocardial Bkbe780.0gEject. Xajbhiij90.0% Stress Rates Pk. Fill Rate4.94EDV/secLVtime Pk. Fill 183.33msec Pk. Empty Rate5.49ESV/secLVtime Pk. Skiao556.15msec 1/3 Pk. Fill1.35EDV/sec Stress Scores Regional WT0.00Summed WT0.00 Regional WM0.00Summed WM0.00 LV Perfusion The stress scans showed no significant defects. The rest scans showed no significant defects. Nuclear imaging shows no reversible ischemia or infarct. Wall Motion Left ventricular systolic function is normal with no regional wall motion abnormalities and an ejecti on fraction of greater than 70%. LV Perf. Quant 17 Seg. SSS0.00 17 Seg. SRS0.00 17 Seg. SDS0.00 Stress Defect Extent (% LAD)0.00Rest Defect Extent (% LAD)0.00Rev. Defect Extent (% LAD)0.00 Stress Defect Extent (% LCX) 0.00Rest Defect Extent (% LCX)0.00Rev. Defect Extent (% LCX)0.00 Stress Defect Extent (% RCA)0.00Rest Defect Extent (% RCA)0.00Rev. Defect Extent (% RCA)0.00 Stress Defect Extent (% MARISABEL)0.00Rest Defect Extent (% MARISABEL)0.00Rev. Defect Extent (% MARISABEL)0.00 Conclusion 1. Good exercise tolerance. 2. No reported chest pain. 3. No EKG evidence of stress-induced ischemia. 4. Nuclear imaging shows no reversible ischemia or infarct. 5. Normal left ventricular systolic function with an ejection fraction of greater than 70%. 6. Low risk treadmill nuclear stress test. Signed by : Dwayne Elizondo MD Electronically Approved : 11/24/2020 15:20:35
== END ==
LOC: NM 08:47
PROVIDERS: ATTEND Physician Assistant Medical
DX: I10 Essential (primary) hypertension (principal); R07.9 Chest pain, unspecified
CPT/HCPCS: 78452; 93017; A9500

== ENCOUNTER 2021-07-03 21:37 | Emergency (ER) | payer BC | END 2021-07-03 21:39 | disposition left against medical advice (07) | LOC: ER 21:37 | DX: M54.9 Dorsalgia, unspecified (principal); Z53.21 Procedure and treatment not carried out due to patient leaving prior to being seen by health care provider ==